=== PATIENT | male | born 1955 | race Caucasian/White ===

== ENCOUNTER → 2016-02-20 | Emergency (ER) ==
[~2016-02-20] MED LIST: EPINEPHRINE SYRINGE ONE
--- NOTE | 2016-02-20 17:24 | PROVIDER DOCUMENTATION ---
HPI-Cardiopulmonary Arrest - General Chief Complaint: Full Arrest Stated Complaint: full aresst Time Seen by Provider: 02/20/16 17:13 Source: EMS - History of Present Illness-C/P Arrest Initial Comments: 60 yo WM apparently developed abdominal and chest pain followed by profound low BP. EMS arrived on the scene , EKG confirmed inf STEMI. He was intubated en route to the hospital, developed PEA, received 4 amps epi, one amp bicarb en route. On arrival he continued in PEA (total 28 min). Resuscitation suspended Reason for Code Blue?: full arrest Witnessed arrest?: Yes Noted by:: other (EMS en route) Bystander CPR?: No CPR initiated before doctor arrival?: Yes Down-time before ACLS?: see above Down-time before ACLS? (in minutes, if known): 5 Initial Findings: unresponsive, PEA Binh, agonal respirations Treatment initiated prior to doctor arrival?: Initiated intubated, Initiated CPR /thumper, Initiated epinephrine #mg, Initiated sodium bicarb # amps Similar Symptoms Previously?: No Recently seen or treated by another doctor?: No - Pre-hospital Treatment EMS Initial Findings:: unresponsive EMS Initial HR: 0 EMS Initial BP: 0 EMS Initial EKG Rhythm: PEA Pre-hospital Treatment: Initiated oxygen - Pronouncement CPR discontinued. Patient pronounced at: 16:05 Family notified?: Yes Private provider notified?: No home notified?: Yes Organ donor status discussed?: Yes Review of Systems - Adult - REVIEW OF SYSTEMS - ADULT ROS:: unobtainable per condition Constitutional: reports: no symptoms reported. denies: fever Past History - Adult - PAST MEDICAL HISTORY-ADULT Review of Records: reports: Social history reviewed & non-contributory. Physical Exam-General - PHYSICAL EXAM-ADULT Initial Vital Signs Reviewed: Yes - CONSTITUTIONAL General Appearance: other (DOA) - EYES Eyes: other (fixed and dilated) - HEAD, EARS, NOSE, MOUTH & THROAT HENMT: normocephalic/atraumatic - CARDIOVASCULAR Cardiovascular: other (Asystole) - NEUROLOGIC Neurologic: other (DOA) - PSYCHIATRIC Psych/Mental Status: other (DOA) Progress - PLAN OF CARE/RESULTS Progress/Plan/Lab Results: See Departure - Departure Time of Disposition Order: 17:46 DIAGNOSIS: STEMI (ST elevation myocardial infarction) Disposition: 20 Certified Medical Emergency: Emergent Condition: Critical - Critical Care Note Total Time (mins): 45 Critical Care Statement: This patient required my direct personal management to treat or rule out processes, the absence of which, could potentiallly result in sudden, clinically significant life or limb threatening deterioration.
== END | disposition expired ==
LOC: EDBD → ED 16:25
DX: I21.3 ST elevation (STEMI) myocardial infarction of unspecified site (principal); I46.9 Cardiac arrest, cause unspecified; R10.9 Unspecified abdominal pain; R07.9 Chest pain, unspecified; R06.02 Shortness of breath; R41.82 Altered mental status, unspecified
CPT/HCPCS: 99285; J0171